=== PATIENT | female | born 1975 | race Caucasian/White ===

== ENCOUNTER → 2018-07-05 | Outpatient (CLI) | payer OTHER ==
[~2018-07-05] MED LIST: KETO10TA2 PO
== END | disposition home or self-care (01) ==
LOC: NUCLEAR 07:00
DX: M24.811 Other specific joint derangements of right shoulder, not elsewhere classified (principal); M24.812 Other specific joint derangements of left shoulder, not elsewhere classified
CPT/HCPCS: 78315; 78306; A9503

== ENCOUNTER 2018-08-25 06:46 | Day surgery (SDC) | payer OTHER ==
[~2018-08-25 06:46] MED LIST changes: +EXEDRIN PO; +[UNRECOGNIZED DRUG - OTHER] PO
== END 2018-08-25 13:10 | disposition home or self-care (01) ==
LOC: CIR.AMB 06:46
DX: N84.0 Polyp of corpus uteri (principal); D25.0 Submucous leiomyoma of uterus

== ENCOUNTER 2018-09-22 10:03 | Day surgery (SDC) | payer OTHER ==
[~2018-09-22 10:03] MED LIST changes: +TYLENOL ARTHRI650 MG PO
== END 2018-09-22 17:05 | disposition home or self-care (01) ==
LOC: CIR.AMB 10:03
DX: N39.3 Stress incontinence (female) (male) (principal)
CPT/HCPCS: 57288; C1771

== ENCOUNTER 2019-11-22 11:04 | Outpatient (CLI) | payer OTHER | END 2019-11-22 11:31 | disposition home or self-care (01) | LOC: RAD 11:04 | PROVIDERS: ATTEND Orthopaedic Surgery | DX: M25.522 Pain in left elbow (principal); M79.641 Pain in right hand; M79.642 Pain in left hand ==

== ENCOUNTER 2021-08-28 08:46 | Outpatient (CLI) | payer OTHER | END 2021-08-28 08:54 | disposition home or self-care (01) | LOC: RAD 08:46 | PROVIDERS: ATTEND Obstetrics & Gynecology | DX: R05.9 Cough, unspecified (principal) ==

== ENCOUNTER 2021-09-03 07:51 | Outpatient (CLI) | payer OTHER | END 2021-09-03 07:59 | disposition home or self-care (01) | LOC: EKG 07:51 → LAB 07:51 → EKG 07:59 | PROVIDERS: ATTEND Specialist | DX: R94.31 Abnormal electrocardiogram [ECG] [EKG] (principal) ==

== ENCOUNTER 2021-11-21 09:05 | Outpatient (CLI) | payer OTHER | END 2021-11-21 09:17 | disposition home or self-care (01) | LOC: SONOGRAMA 09:05 | PROVIDERS: ATTEND Internal Medicine Gastroenterology | DX: R16.0 Hepatomegaly, not elsewhere classified (principal); R16.1 Splenomegaly, not elsewhere classified; E03.8 Other specified hypothyroidism ==

== ENCOUNTER 2022-01-14 14:23 | Outpatient (CLI) | payer OTHER | END 2022-01-14 14:34 | disposition home or self-care (01) | LOC: RAD 14:23 | PROVIDERS: ATTEND Obstetrics & Gynecology Gynecologic Oncology | DX: D64.9 Anemia, unspecified (principal); N39.0 Urinary tract infection, site not specified; Z01.818 Encounter for other preprocedural examination; R79.89 Other specified abnormal findings of blood chemistry; Z20.822 Contact with and (suspected) exposure to COVID-19; D25.9 Leiomyoma of uterus, unspecified ==

== ENCOUNTER → 2022-01-23 08:00 | Outpatient (CLI) | payer OTHER ==
[~2022-01-23] VITALS: Ht 167.6 cm; Wt 67.6 kg
[~2022-01-23 08:00] MED LIST changes: +DAILY VALUE1 EACH PO; +EXCEDRIN EXTRA1 EAC2 PO; +OMEGA3 PO; +VITAMIN C500 M6 PO; +VITAMIN D PO
== END | disposition home or self-care (01) ==
LOC: LAB 08:00 → OB/GYN 01-30 09:00 → EDSTATUS 01-30 09:15 → OB/GYN 01-30 09:15
PROVIDERS: ATTEND Obstetrics & Gynecology Gynecologic Oncology
DX: D64.9 Anemia, unspecified (principal); R79.89 Other specified abnormal findings of blood chemistry; D25.9 Leiomyoma of uterus, unspecified

== ENCOUNTER 2022-05-06 08:15 | Inpatient (IN) | payer OTHER ==
[~2022-05-06] VITALS: Ht 167.6 cm; Wt 66.2 kg
[2022-05-08] MEDS ORDERED: DICLOFENAC SOD100 GM (14:31)
[2022-05-08] MEDS ORDERED: OMEGA 3 1,0001 EACH (14:32)
[2022-05-08] MEDS ORDERED: VITAMIN D310 MC1 (14:32)
== END 2022-05-09 13:41 | disposition home or self-care (01) | DRG 743 ==
LOC: O/R 05-08 06:45 → OB/GYN 05-08 08:15
PROVIDERS: ADMIT Obstetrics & Gynecology Gynecologic Oncology; ATTEND Obstetrics & Gynecology Gynecologic Oncology
PROC: 0UT74ZZ Resection of Bilateral Fallopian Tubes, Percutaneous Endoscopic Approach (ICD-10-PCS; 2022-05-08)
PROC: 0UT94ZZ Resection of Uterus, Percutaneous Endoscopic Approach (ICD-10-PCS; principal; 2022-05-08 17:45)
DX: D25.0 Submucous leiomyoma of uterus (principal); N80.03 Adenomyosis of the uterus; Z20.822 Contact with and (suspected) exposure to COVID-19

== ENCOUNTER 2025-02-05 20:44 | Emergency (ER) | payer OTHER ==
[~2025-02-05] VITALS: Ht 170.2 cm; Wt 68.0 kg
[~2025-02-05 20:44] MED LIST changes: +DICLOFENAC SOD100 GM; +OMEGA 3 1,0001 EACH; +VITAMIN D310 MC1
[2025-02-05] MEDS ORDERED: CEFTRIAXONE SODIUM 1,000 MG VIAL IM ONE (21:30)
[2025-02-05] MEDS ORDERED: DEXAMETHASONE SODIUM PHOSPHATE 4 MG/ML VIAL IM ONE (21:30)
[2025-02-05] MEDS ORDERED: AMOX-CLAV 875-1 EACH PO (21:32)
[2025-02-05] MEDS ORDERED: PEPCID AC20 MG PO (21:32)
[2025-02-05] MEDS ORDERED: DEXAMETHASONE SODIUM PHOSPHATE 4 MG/ML VIAL ONE (21:34)
[2025-02-05] MEDS ORDERED: CEFTRIAXONE SODIUM 1,000 MG VIAL ONE (21:34)
== END 2025-02-05 21:48 | disposition home or self-care (01) ==
LOC: ER 20:45
DX: L02.212 Cutaneous abscess of back [any part, except buttock and flank] (principal)